=== PATIENT | male | born 1965 | race Caucasian/White ===

== ENCOUNTER 2020-02-03 16:41 | Emergency (ER) | payer MEDICAID ==
[~2020-02-03] VITALS: Ht 185.4 cm; Wt 99.8 kg
[2020-02-03 16:57] LABS: BASO # 0.1 10*3/uL (0.0-0.1); BASO % 0.4 % (0.0-1.0); EOS # 0.1 10*3/uL (0.0-0.4); EOS % 0.8 % (1.0-4.0); HEMATOCRIT 49.3 % (42.0-52.0); MEAN CELL VOLUME 93.2 fl (80.0-94.0); MEAN CORPUSCULAR HGB 32.3 pg (27.0-31.0); MEAN CORPUSCULAR HGB CONC 34.7 g/dl (33.0-37.0); MONO # 0.7 10*3/uL (0.1-1.0); MONO % 5.8 % (3.0-9.0); NEUT % 67.7 % (47.0-73.0); PLATELET COUNT AUTOMATED 341 10*3/uL (130-400); RED BLOOD COUNT 5.29 10*6/uL (4.50-5.90); RED CELL DISTRI WIDTH 11.9 % (0-14.5); WHITE BLOOD COUNT 11.8 10*3/uL (4.8-10.8)
[2020-02-03 17:06] LABS: ACT PARTIAL THROMBO TIME 27.7 SECONDS (20.0-32.1)
[2020-02-03 17:15] LABS: ALBUMIN 4.3 gm/dl (3.1-4.5); ALKALINE PHOSPHATASE 83 U/L (45-117); BUN 11 mg/dl (7-24); CHLORIDE 103 mmol/L (98-107); CREATININE 1.17 mg/dL (0.70-1.30); POTASSIUM 3.6 mmol/L (3.5-5.1); SGOT/AST 16 IU/L (3-35); SGPT/ALT 29 U/L (12-78); SODIUM 137 mmol/L (136-145)
[2020-02-03 17:17] LABS: TROPONIN I < 0.015 ng/ml (<0.045)
== END 2020-02-03 20:45 | disposition left against medical advice (07) ==
LOC: ED 16:41
PROVIDERS: Emergency Medicine
DX: R07.9 Chest pain, unspecified (principal); F32.9 Major depressive disorder, single episode, unspecified; F41.9 Anxiety disorder, unspecified; I10 Essential (primary) hypertension; F17.200 Nicotine dependence, unspecified, uncomplicated

== ENCOUNTER 2020-02-06 15:02 | Inpatient (IN) | payer MEDICAID ==
[~2020-02-06] VITALS: Ht 185.4 cm; Wt 82.2 kg
[2020-02-06 15:16] VITALS: BP 144/94
[2020-02-06 16:13] LABS: BASO # 0.1 10*3/uL (0.0-0.1); BASO % 0.5 % (0.0-1.0); EOS # 0.1 10*3/uL (0.0-0.4); EOS % 0.7 % (1.0-4.0); HEMATOCRIT 45.3 % (42.0-52.0); LYMPH # 2.5 10*3/uL (1.3-4.4); LYMPH % 24.5 % (27.0-41.0); MEAN CELL VOLUME 93.6 fl (80.0-94.0); MEAN CORPUSCULAR HGB CONC 34.2 g/dl (33.0-37.0); MEAN PLATELET VOLUME 9.1 fl (9.6-12.3); MONO # 0.6 10*3/uL (0.1-1.0); MONO % 6.2 % (3.0-9.0); NEUT % 67.8 % (47.0-73.0); PLATELET COUNT AUTOMATED 313 10*3/uL (130-400); RED BLOOD COUNT 4.84 10*6/uL (4.50-5.90); WHITE BLOOD COUNT 10.3 10*3/uL (4.8-10.8)
[2020-02-06 16:23] LABS: ACT PARTIAL THROMBO TIME 27.9 SECONDS (20.0-32.1)
[2020-02-06 16:30] LABS: ALBUMIN 3.9 gm/dl (3.1-4.5); ALKALINE PHOSPHATASE 53 U/L (45-117); BUN 14 mg/dl (7-24); CHLORIDE 106 mmol/L (98-107); POTASSIUM 3.7 mmol/L (3.5-5.1); SGOT/AST 25 IU/L (3-35); SGPT/ALT 28 U/L (12-78); SODIUM 136 mmol/L (136-145); TOTAL PROTEIN 7.4 gm/dL (6.4-8.2)
--- NOTE | 2020-02-06 16:32 | NUR ---
PT RESTING IN BED. CALL LIGHT WITHIN REACH. NO COMPLAINTS AT THIS TIME.
[2020-02-06 16:33] LABS: TROPONIN I < 0.015 ng/ml (<0.045)
[2020-02-06 17:06] VITALS: BP 136/85
[2020-02-06 17:25] VITALS: BP 135/85
[2020-02-06 17:47] VITALS: BP 143/88
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
[2020-02-06] MEDS ORDERED: ZIPRASIDONE HCL20 M1 PO (17:55)
[2020-02-06] MEDS ORDERED: CYMBALTA30 MG PO (17:55)
[2020-02-06] MEDS ORDERED: ATARAX,VISTARIL50 MG PO (17:57)
[2020-02-06] MEDS ORDERED: TRAZODONE50 MG PO (17:57)
--- NOTE | 2020-02-06 17:59 | NUR ---
MED REC UPDATED VIA LIST PROVIDED FROM HOME.
--- NOTE | 2020-02-06 18:41 | NUR ---
CONSULT CALLED TO ANSWERING SERVICE.
--- NOTE | 2020-02-06 18:44 | NUR ---
NOTIFIED THAT MED REC WAS UPDATED.
[2020-02-06 20:00] VITALS: BP 148/89
[2020-02-07] VITALS: BP 115/71; BP 123/62
[2020-02-07 05:45] LABS: ALKALINE PHOSPHATASE 82 U/L (45-117); BUN 16 mg/dl (7-24); CHLORIDE 108 mmol/L (98-107); CHOLESTEROL 197 mg/dL (<200); CREATININE 0.97 mg/dL (0.70-1.30); PHOSPHOROUS 3.4 mg/dL (2.5-4.9); POTASSIUM 3.7 mmol/L (3.5-5.1); SGOT/AST 20 IU/L (3-35); SGPT/ALT 30 U/L (12-78); SODIUM 138 mmol/L (136-145); TOTAL PROTEIN 7.6 gm/dL (6.4-8.2); TRIGLYCERIDES 70 mg/dl (<150); VLDL CHOLESTEROL 14 mg/dL (6-40)
[2020-02-07 05:46] LABS: HDL CHOLESTEROL 46 mg/dl (40-60); LDL CHOLESTEROL 137 mg/dL (9-159)
[2020-02-07 06:14] LABS: BASO % 0.5 % (0.0-1.0); EOS # 0.2 10*3/uL (0.0-0.4); EOS % 2.4 % (1.0-4.0); HEMATOCRIT 46.9 % (42.0-52.0); LYMPH # 2.3 10*3/uL (1.3-4.4); LYMPH % 27.9 % (27.0-41.0); MEAN CELL VOLUME 92.9 fl (80.0-94.0); MEAN CORPUSCULAR HGB 31.7 pg (27.0-31.0); MEAN CORPUSCULAR HGB CONC 34.1 g/dl (33.0-37.0); MEAN PLATELET VOLUME 9.6 fl (9.6-12.3); MONO # 0.5 10*3/uL (0.1-1.0); MONO % 6.5 % (3.0-9.0); NEUT # 5.2 10*3/uL (2.3-7.9); NEUT % 62.6 % (47.0-73.0); PLATELET COUNT AUTOMATED 325 10*3/uL (130-400); RED BLOOD COUNT 5.05 10*6/uL (4.50-5.90); RED CELL DISTRI WIDTH 12.1 % (0-14.5); WHITE BLOOD COUNT 8.3 10*3/uL (4.8-10.8)
[2020-02-07 08:00] VITALS: BP 110/76
--- NOTE | 2020-02-07 09:51 | NUR ---
Liquid Loader SPOKE WITH PATIENT VIA PHONE CALL. Patient states lives at [facility] with OTHER RESIDENTS. There are FEW steps in the home. Physician: BEE Pharmacy: [facility] [phone] Home health services: NONE Patient's level of ADLs: INDEPENDENT Patient has working utilities: YES DME: NONE Follow-up physician's appointment after d/c: WILL BE MADE BY HOSPITALIST COORDINATOR Does patient want to access PORTAL?: NO Discharge plan IS TO RETURN TO THE [facility]. PATIENT IS CURRENT WITH [facility]. PATIENT PSYCHIATRIST IS SIL POLK, PATIENTS HALL PORTER IS ANDRES SCRUGGS. PATIENT STATED THAT HE WILL NEED A CAB THROUGH HIS INSURANCE UPON DISCHARGE. PATIENTS PLAN IS TO RETURN TO [facility] UPON DISCHARGE. AT THIS TIME PATIENT HAS NO NEEDS. WILL CONTINUE TO FOLLOW. . JIMENEZ COULTER
--- NOTE | 2020-02-07 11:51 | NUR ---
PT ASSESSED FOR DA. PT RESTING COMFORTABLY. RESPS REGULAR AND UNLABORED AT 18. BBSs EQUAL AND CLEAR. SPO2 ON RA 94%. DA NOT INDICATED AT THIS TIME. INSTRUCTED PT TO CALL FOR TX FOR SOB.
[2020-02-07 12:00] VITALS: BP 119/86
[2020-02-07 16:00] VITALS: BP 113/74
--- NOTE | 2020-02-07 19:10 | NUR ---
PT SITTING IN BED AT THIS TIME. PT STATES THAT HE IS HUNGRY, OFFERED HIM A SANDWICH. NO OTHER COMPLAINTS, CALL LIGHT IN REACH
--- NOTE | 2020-02-07 19:50 | NUR ---
PT STATES THAT HE IS HAVING BAD ANXIETY AT THIS TIME. PT SITTING IN BED EATING AT THIS TIME. PT VOICES THAT HE IS CONCERNED HIS MEDICATIONS ARE NOT WORKING. PT VITALS AT THIS TIME ARE WNL. WILL NOTIFY THE DOCTOR.
[2020-02-07 20:00] VITALS: BP 122/87
--- NOTE | 2020-02-07 20:03 | NUR ---
DR. BLACKWELL NOTIFIED OF PT REQUEST FOR ATIVAN. NO NEW ORDERS AT THIS TIME.
--- NOTE | 2020-02-07 20:16 | NUR ---
VISTARIL GIVEN FOR COMPLAINTS OF ANXIETY. SEE MAR
--- NOTE | 2020-02-07 20:30 | NUR ---
PT LYING IN BED WATCHING TV AT THIS TIME. NO SIGNS OF DISTRESS. PT RELAXING.
--- NOTE | 2020-02-07 21:30 | NUR ---
PT RELAXING IN BED AT THIS TIME. PT STATES "I AM FEELING PRETTY GOOD RIGHT NOW, BUT I STILL NEED SOME ATIVAN." NO S/S OF DISTRESS NOTED. WILL NOTIFY DOCTOR
--- NOTE | 2020-02-07 22:20 | NUR ---
PT WATCHING TV AT THIS TIME. NO S/S OF DISTRESS NOTED.
--- NOTE | 2020-02-07 23:00 | NUR ---
PT LYING IN BED WATCHING TV. NO SIGNS OF DISTRESS.
[2020-02-08] VITALS: BP 122/87
--- NOTE | 2020-02-08 | NUR ---
PRN MEDICATIONS APPEAR TO BE EFFECTIVE. PT LYING IN BED WITH EYES CLOSED AT THIS TIME. RESTING COMFORTABLE. NO SIGNS OF DISTRESS. CALL LIGHT IN REACH
--- NOTE | 2020-02-08 01:00 | NUR ---
PT APPEARS TO BE SLEEPING AT THIS TIME. EYES CLOSED, RESPIRATIONS EASY AND UNLABORED. NO S/S OF DISTRESS NOTED. CALL LIGHT IN REACH
--- NOTE | 2020-02-08 02:00 | NUR ---
PT SLEEPING AT TIME. CALL LIGHT IN REACH
--- NOTE | 2020-02-08 03:00 | NUR ---
PT SLEEPING AT THIS TIME, RESPIRATIONS EASY AND UNLABORED. CALL LIGHT IN REACH
--- NOTE | 2020-02-08 04:00 | NUR ---
PT LYING IN BED SLEEPING AT THIS TIME.
[2020-02-08 08:00] VITALS: BP 116/74
--- NOTE | 2020-02-08 08:53 | NUR ---
MEDICATED WITH PRN PO VISTARIL FOR ANXIETY.
--- NOTE | 2020-02-08 09:40 | NUR ---
CARLTON HOLLY CALLED RE: PATIENT CONSULT. TRANSFERRED THE CALL TO HIS ROOM, PATIENT IS SPEAKING WITH HER.
[2020-02-08 12:00] VITALS: BP 108/65
[2020-02-08 16:00] VITALS: BP 107/71
--- NOTE | 2020-02-08 18:41 | NUR ---
MEDICATED WITH PRN PO VISTARIL FOR ANXIETY.
[2020-02-08 20:00] VITALS: BP 131/79
[2020-02-09] VITALS: BP 108/61
--- NOTE | 2020-02-09 | NUR ---
PT SLEEPING AT THIS TIME. NO S/S OF DISTRESS. CALL LIGHT IN REACH
--- NOTE | 2020-02-09 04:00 | NUR ---
PT APPEARS TO BE SLEEPING AT THIS TIME. CALL LIGHT IN REACH
[2020-02-09 06:15] LABS: BASO # 0.1 10*3/uL (0.0-0.1); BASO % 0.6 % (0.0-1.0); EOS # 0.4 10*3/uL (0.0-0.4); EOS % 5.1 % (1.0-4.0); HEMATOCRIT 46.1 % (42.0-52.0); LYMPH # 2.1 10*3/uL (1.3-4.4); LYMPH % 27.4 % (27.0-41.0); MEAN CELL VOLUME 96.8 fl (80.0-94.0); MEAN CORPUSCULAR HGB 31.7 pg (27.0-31.0); MEAN CORPUSCULAR HGB CONC 32.8 g/dl (33.0-37.0); MEAN PLATELET VOLUME 9.5 fl (9.6-12.3); MONO # 0.4 10*3/uL (0.1-1.0); MONO % 5.6 % (3.0-9.0); NEUT # 4.8 10*3/uL (2.3-7.9); NEUT % 61.2 % (47.0-73.0); PLATELET COUNT AUTOMATED 271 10*3/uL (130-400); RED BLOOD COUNT 4.76 10*6/uL (4.50-5.90); RED CELL DISTRI WIDTH 12.4 % (0-14.5); WHITE BLOOD COUNT 7.8 10*3/uL (4.8-10.8)
[2020-02-09 06:41] LABS: BUN 20 mg/dl (7-24); CHLORIDE 112 mmol/L (98-107); CREATININE 0.96 mg/dL (0.70-1.30); SODIUM 143 mmol/L (136-145)
[2020-02-09 07:53] LABS: VITAMIN D, 25-HYDROXY 34.8 ng/mL (30-100)
[2020-02-09 08:00] VITALS: BP 106/68; BP 145/63
--- NOTE | 2020-02-09 09:00 | NUR ---
patient will return to detention when medically stable, case management/socially responsible investment adviser will follow
--- NOTE | 2020-02-09 11:41 | NUR ---
INFORMED CONSENT SIGNED FOR STANDARD STRSS TEST WITH DR. BERNARD. RESTING EKG NSR, HR 73, BP 130/86. COMPLETED 1:54 OF A STANDARD SUSHIL PROTOCL COMPLETING 1:54 STAGE I 1.7 MPH/10% GRADE. TEST TERMINATED AT PT REQUEST. STATES HE IS WEAK AND LIGHTHEADED AND GOING TO PASS OUT. ASSITED OFF TREADMILL AND ONTO TABLE. PEAK HEART RATE OF 93 ACHIEVED WHICH IS 55% PREDICATED MAXIMUM AND A PEAK BP OF 124/80. DR. BERNARD PRESENT. STATES THAT WE ARE GOING TO HAVE TO DO A NUCLEAR STRESS TEST TO GET RESULTS NEEDED. NO ARRHYTHMIAS OR ST CHANGES PRESENT. PT FEELING NORMAL 4 MINUTES IN RECOVERY. HAS A LIMITED EXERCISE TOLERANCE. THIS IS A SUBOPTIMAL LIMITED STUDY. WILL RETURN THIS AFTERNOON FOR LEXISCAN STRESS TEST.
[2020-02-09 12:00] VITALS: BP 137/84
--- NOTE | 2020-02-09 14:32 | NUR ---
INFORMED CONSENT SIGNED FOR LEXISCAN STRESS TEST WITH DR. BERNARD. RESTING EKG NSR, HR 66, BP 130/84. PULSE OX 98% AND LUNGS CLEAR. COMPLETED ONE MINUTE OF LEXISCAN PROTOCOL RECEIVING LEXISCAN 0.4MG OVER 10 SECONDS. NO ARRHYTHMIAS OR ST CHANGES NOTED. PT C/O NAUSEA. LAST RECOVERY HR 98, BP 138/72. WAITING NUCLEAR SCANNING IN STABLE CONDITION.
--- NOTE | 2020-02-09 15:30 | NUR ---
RETURN FROM CARDIAC FUNCTION
[2020-02-09] MEDS ORDERED: CLONAZEPAM0.5 M2 PO ×2 (15:44→15:50)
[2020-02-09 16:00] VITALS: BP 148/84
--- NOTE | 2020-02-09 16:16 | NUR ---
PT WILL BE DISCAHRGED HOME TODAY. PT NEEDS TO HAVE A CAB CALLED THROUGH HIS INSURANCE COMPANY, RN CONTACTED CARE MANAGEMENT TO ATTEMPT TO FIGURE OUT INSURANCE NUMBER TO CALL FOR A CAB. ATTEMPTED TO CALL PATIENTS PHARMACY TO SEE IF NEW RX FOR KLONOPIN CAN BE FAXED, PT PHARMACY IS CLOSED AT THIS TIME. SPOKE TO SOMEONE AT [facility], THE PERSON I SPOKE TO STATED IF UNABLE TO FAX NEW RX TO PHARMACY TO SEND PAPER RX WITH PATIENT UPON DISCHARGE. PT AWARE DISCHARGE HOME TODAY, IV REMOVED, TELE REMOVED.
--- NOTE | 2020-02-09 16:47 | NUR ---
DISCHARGE INSTRUCTIONS PROVIDED TO PATIENT, PT HAS NO QUESTIONS AT THIS TIME. PT WILL BE TAKEN HOME BY [facility]. [facility] NOTIFIED PATIENT WILL RETURN.
--- NOTE | 2020-02-09 18:21 | NUR ---
PT READY FOR DISCHARGE, WAITING FOR CAB TO CALL AND NOTIFY THEY ARE ON THEIR WAY
--- NOTE | 2020-02-09 18:42 | NUR ---
CAB HERE TO REGION[facility] AGRONOMIST PATIENT, TAKEN TO ER VIA WHEELCHAIR FOR DISCAHRGE.
== END 2020-02-09 18:42 | DRG 203 ==
LOC: ED 15:02 → EDHOLD 16:56 → 4E 16:56
PROVIDERS: Emergency Medicine; Internal Medicine; Registered Nurse; Student in an Organized Health Care Education/Training Program; ADMIT Internal Medicine
PROC: 4A02XM4 Measurement of Cardiac Total Activity, External Approach (ICD-10-PCS; principal; 2020-02-09)
PROC: 3E073KZ Introduction of Other Diagnostic Substance into Coronary Artery, Percutaneous Approach (ICD-10-PCS; 2020-02-09)
DX: R07.89 Other chest pain (principal); E83.41 Hypermagnesemia; R06.02 Shortness of breath; I10 Essential (primary) hypertension; E78.5 Hyperlipidemia, unspecified; Z71.6 Tobacco abuse counseling; F41.9 Anxiety disorder, unspecified; F31.9 Bipolar disorder, unspecified; K21.9 Gastro-esophageal reflux disease without esophagitis; F17.210 Nicotine dependence, cigarettes, uncomplicated; R61 Generalized hyperhidrosis; Z82.49 Family history of ischemic heart disease and other diseases of the circulatory system; Z79.899 Other long term (current) drug therapy

== ENCOUNTER 2020-02-27 20:08 | Emergency (ER) | payer MEDICAID ==
[~2020-02-27] VITALS: Ht 185.4 cm; Wt 83.0 kg
[~2020-02-27 20:08] MED LIST: ATARAX,VISTARIL50 MG PO; CLONAZEPAM0.5 M2 PO; CYMBALTA30 MG PO; TRAZODONE50 MG PO; ZIPRASIDONE HCL20 M1 PO
[2020-02-27 20:32] LABS: BASO % 0.3 % (0.0-1.0); EOS # 0.2 10*3/uL (0.0-0.4); EOS % 1.4 % (1.0-4.0); LYMPH % 20.1 % (27.0-41.0); MEAN CELL VOLUME 91.5 fl (80.0-94.0); MEAN PLATELET VOLUME 9.1 fl (9.6-12.3); MONO # 0.9 10*3/uL (0.1-1.0); MONO % 5.7 % (3.0-9.0); NEUT # 10.9 10*3/uL (2.3-7.9); NEUT % 72.2 % (47.0-73.0); PLATELET COUNT AUTOMATED 279 10*3/uL (130-400); RED BLOOD COUNT 4.59 10*6/uL (4.50-5.90); RED CELL DISTRI WIDTH 12.5 % (0-14.5)
[2020-02-27 20:53] LABS: ALBUMIN 3.9 gm/dl (3.1-4.5); ALKALINE PHOSPHATASE 70 U/L (45-117); BUN 10 mg/dl (7-24); CHLORIDE 107 mmol/L (98-107); CREATININE 0.78 mg/dL (0.70-1.30); POTASSIUM 3.3 mmol/L (3.5-5.1); SGOT/AST 19 IU/L (3-35); SGPT/ALT 30 U/L (12-78); SODIUM 141 mmol/L (136-145)
[2020-02-27 20:55] LABS: TROPONIN I < 0.015 ng/ml (<0.045)
[2020-02-29] MEDS ORDERED: ATARAX,VISTARIL50 MG PO (10:18)
== END 2020-02-28 06:12 | disposition home or self-care (01) ==
LOC: ED 20:08
PROVIDERS: Nurse Practitioner Family
DX: F41.9 Anxiety disorder, unspecified (principal); E87.6 Hypokalemia; I10 Essential (primary) hypertension; F32.9 Major depressive disorder, single episode, unspecified; F17.200 Nicotine dependence, unspecified, uncomplicated; Z79.899 Other long term (current) drug therapy

== ENCOUNTER 2020-02-28 10:02 | Emergency (ER) | payer MEDICAID ==
[2020-02-29] MEDS ORDERED: ATARAX,VISTARIL50 MG PO (10:18)
== END 2020-02-28 11:18 | disposition home or self-care (01) ==
LOC: ED 10:02
DX: F41.9 Anxiety disorder, unspecified (principal); I10 Essential (primary) hypertension; F32.9 Major depressive disorder, single episode, unspecified; Z79.899 Other long term (current) drug therapy

== ENCOUNTER 2020-02-28 20:43 | Emergency (ER) | payer MEDICAID ==
[2020-02-29] MEDS ORDERED: ATARAX,VISTARIL50 MG PO (10:18)
== END 2020-02-29 10:25 | disposition home or self-care (01) ==
LOC: ED 20:43
DX: F41.9 Anxiety disorder, unspecified (principal); K21.9 Gastro-esophageal reflux disease without esophagitis; I10 Essential (primary) hypertension; F32.9 Major depressive disorder, single episode, unspecified; E78.5 Hyperlipidemia, unspecified; F17.200 Nicotine dependence, unspecified, uncomplicated; Z79.899 Other long term (current) drug therapy; Z88.8 Allergy status to other drugs, medicaments and biological substances

== ENCOUNTER 2020-03-01 20:33 | Emergency (ER) | payer MEDICAID ==
[~2020-03-01] VITALS: Ht 172.7 cm; Wt 95.3 kg
[2020-03-01 21:22] LABS: BASO % 0.2 % (0.0-1.0); EOS # 0.1 10*3/uL (0.0-0.4); EOS % 0.6 % (1.0-4.0); HEMATOCRIT 40.5 % (42.0-52.0); LYMPH # 1.9 10*3/uL (1.3-4.4); LYMPH % 13.4 % (27.0-41.0); MEAN CELL VOLUME 91.8 fl (80.0-94.0); MEAN CORPUSCULAR HGB CONC 34.8 g/dl (33.0-37.0); MONO % 7.2 % (3.0-9.0); NEUT # 10.9 10*3/uL (2.3-7.9); NEUT % 78.2 % (47.0-73.0); PLATELET COUNT AUTOMATED 273 10*3/uL (130-400); RED BLOOD COUNT 4.41 10*6/uL (4.50-5.90); RED CELL DISTRI WIDTH 12.3 % (0-14.5); WHITE BLOOD COUNT 13.9 10*3/uL (4.8-10.8)
[2020-03-01 21:37] LABS: ACETAMINOPHEN (TYLENOL) < 5.0 ug/ml (10-30); ALBUMIN 3.9 gm/dl (3.1-4.5); ALKALINE PHOSPHATASE 73 U/L (45-117); BUN 9 mg/dl (7-24); CHLORIDE 107 mmol/L (98-107); CREATININE 0.84 mg/dL (0.70-1.30); ETHYL ALCOHOL < 3.0 mg/dl (<3); POTASSIUM 3.7 mmol/L (3.5-5.1); SGOT/AST 26 IU/L (3-35); SGPT/ALT 28 U/L (12-78); SODIUM 136 mmol/L (136-145); TOTAL PROTEIN 7.2 gm/dL (6.4-8.2)
[2020-03-01 22:22] LABS: URINE AMPHETAMINES < 1000 (1000ng/ml); URINE BARBITURATES < 200 (200ng/ml); URINE BENZODIAZEPINES < 200 (200ng/ml); URINE CANNABINOIDS (THC) < 50 (50ng/ml); URINE COCAINE < 300 (300ng/ml); URINE METHADONE < 300 (300ng/ml); URINE OPIATES < 300 (300ng/ml)
[2020-03-01 22:31] LABS: URINE PHENCYCLIDINE < 25 (25ng/ml)
[2020-03-01 22:33] LABS: BACTERIA TRACE; BILIRUBIN NEGATIVE (NEGATIVE); BLOOD NEGATIVE (NEGATIVE); CLARITY SL CLOUDY (CLEAR); COLOR YELLOW (YELLOW); GLUCOSE NEGATIVE (NEGATIVE); KETONE NEGATIVE (NEGATIVE); LEUKO ESTERASE TRACE (NEGATIVE); NITRITE NEGATIVE (NEGATIVE); PH 6.5 (5.0-9.0); RBC 0-2 rbc/hpf (0-2); SPECIFIC GRAVITY 1.005 (1.005-1.030); UROBILINOGEN 0.2 E.U./dl (0.2-1.0)
== END 2020-03-02 11:26 | disposition home or self-care (01) ==
LOC: ED 20:33
PROVIDERS: Emergency Medicine
DX: F41.9 Anxiety disorder, unspecified (principal); F31.9 Bipolar disorder, unspecified; K21.9 Gastro-esophageal reflux disease without esophagitis; I10 Essential (primary) hypertension; E78.5 Hyperlipidemia, unspecified; F17.200 Nicotine dependence, unspecified, uncomplicated; Z79.899 Other long term (current) drug therapy

== ENCOUNTER 2020-03-05 05:02 | Emergency (ER) | payer MEDICAID ==
[~2020-03-05] VITALS: Wt 78.5 kg
[2020-03-05 05:32] LABS: BASO % 0.4 % (0.0-1.0); EOS # 0.2 10*3/uL (0.0-0.4); EOS % 1.8 % (1.0-4.0); HEMATOCRIT 44.7 % (42.0-52.0); LYMPH # 2.3 10*3/uL (1.3-4.4); LYMPH % 27.2 % (27.0-41.0); MEAN CELL VOLUME 92.7 fl (80.0-94.0); MEAN CORPUSCULAR HGB 31.3 pg (27.0-31.0); MEAN CORPUSCULAR HGB CONC 33.8 g/dl (33.0-37.0); MEAN PLATELET VOLUME 9.1 fl (9.6-12.3); MONO # 0.6 10*3/uL (0.1-1.0); MONO % 6.6 % (3.0-9.0); NEUT # 5.3 10*3/uL (2.3-7.9); NEUT % 63.8 % (47.0-73.0); PLATELET COUNT AUTOMATED 337 10*3/uL (130-400); RED BLOOD COUNT 4.82 10*6/uL (4.50-5.90); RED CELL DISTRI WIDTH 12.2 % (0-14.5); WHITE BLOOD COUNT 8.3 10*3/uL (4.8-10.8)
[2020-03-05 05:37] LABS: ALBUMIN 3.7 gm/dl (3.1-4.5); ALKALINE PHOSPHATASE 75 U/L (45-117); BUN 15 mg/dl (7-24); CHLORIDE 109 mmol/L (98-107); CREATININE 0.93 mg/dL (0.70-1.30); POTASSIUM 3.9 mmol/L (3.5-5.1); SGOT/AST 24 IU/L (3-35); SGPT/ALT 33 U/L (12-78); SODIUM 141 mmol/L (136-145); TOTAL PROTEIN 7.3 gm/dL (6.4-8.2)
[2020-03-05 05:38] LABS: ACETAMINOPHEN (TYLENOL) < 5.0 ug/ml (10-30); ETHYL ALCOHOL < 3.0 mg/dl (<3)
[2020-03-05 06:46] LABS: URINE AMPHETAMINES < 1000 (1000ng/ml); URINE BARBITURATES < 200 (200ng/ml); URINE BENZODIAZEPINES < 200 (200ng/ml); URINE CANNABINOIDS (THC) < 50 (50ng/ml); URINE COCAINE < 300 (300ng/ml); URINE METHADONE < 300 (300ng/ml); URINE OPIATES < 300 (300ng/ml)
[2020-03-05 06:48] LABS: BILIRUBIN NEGATIVE (NEGATIVE); CLARITY SL CLOUDY (CLEAR); COLOR YELLOW (YELLOW); GLUCOSE NEGATIVE (NEGATIVE); KETONE NEGATIVE (NEGATIVE)
[2020-03-05 06:49] LABS: BACTERIA TRACE; BLOOD NEGATIVE (NEGATIVE); CALCIUM OXALATE CRYSTALS 2+; EPITHELIAL CELLS 0-2; LEUKO ESTERASE NEGATIVE (NEGATIVE); MUCOUS 2+; NITRITE NEGATIVE (NEGATIVE); UROBILINOGEN 0.2 E.U./dl (0.2-1.0); WBC 0-2 wbc/hpf (0-5)
[2020-03-05 06:50] LABS: URINE PHENCYCLIDINE < 25 (25ng/ml)
== END 2020-03-05 10:18 | disposition home or self-care (01) ==
LOC: ED 05:02
PROVIDERS: Emergency Medicine
DX: F41.9 Anxiety disorder, unspecified (principal); F31.9 Bipolar disorder, unspecified; K21.9 Gastro-esophageal reflux disease without esophagitis; I10 Essential (primary) hypertension; E78.5 Hyperlipidemia, unspecified; F17.200 Nicotine dependence, unspecified, uncomplicated; Z79.899 Other long term (current) drug therapy

== ENCOUNTER 2020-03-11 17:58 | Emergency (ER) | payer MEDICAID ==
[~2020-03-11] VITALS: Ht 177.8 cm; Wt 78.0 kg
== END 2020-03-11 19:34 | disposition home or self-care (01) ==
LOC: ED 17:58
DX: F41.9 Anxiety disorder, unspecified (principal); I10 Essential (primary) hypertension; F31.9 Bipolar disorder, unspecified; K21.9 Gastro-esophageal reflux disease without esophagitis; E78.5 Hyperlipidemia, unspecified; Z87.891 Personal history of nicotine dependence

== ENCOUNTER 2020-03-11 23:57 | Inpatient (IN) | payer MEDICAID ==
[~2020-03-11] VITALS: Ht 185.4 cm; Wt 76.7 kg
[2020-03-12 00:05] VITALS: BP 140/78
[2020-03-12 00:50] LABS: BASO % 0.3 % (0.0-1.0); EOS # 0.1 10*3/uL (0.0-0.4); EOS % 0.9 % (1.0-4.0); HEMATOCRIT 45.2 % (42.0-52.0); LYMPH # 2.4 10*3/uL (1.3-4.4); LYMPH % 21.6 % (27.0-41.0); MEAN CELL VOLUME 91.5 fl (80.0-94.0); MEAN CORPUSCULAR HGB 31.4 pg (27.0-31.0); MEAN CORPUSCULAR HGB CONC 34.3 g/dl (33.0-37.0); MEAN PLATELET VOLUME 8.9 fl (9.6-12.3); MONO # 0.8 10*3/uL (0.1-1.0); MONO % 6.8 % (3.0-9.0); NEUT # 7.7 10*3/uL (2.3-7.9); NEUT % 70.2 % (47.0-73.0); PLATELET COUNT AUTOMATED 370 10*3/uL (130-400); RED BLOOD COUNT 4.94 10*6/uL (4.50-5.90); RED CELL DISTRI WIDTH 12.2 % (0-14.5)
[2020-03-12 01:08] LABS: ALBUMIN 4.2 gm/dl (3.1-4.5); ALKALINE PHOSPHATASE 82 U/L (45-117); BUN 23 mg/dl (7-24); CHLORIDE 108 mmol/L (98-107); CREATININE 1.15 mg/dL (0.70-1.30); POTASSIUM 3.6 mmol/L (3.5-5.1); SGOT/AST 15 IU/L (3-35); SGPT/ALT 28 U/L (12-78); SODIUM 140 mmol/L (136-145); TOTAL PROTEIN 7.9 gm/dL (6.4-8.2)
[2020-03-12 01:15] LABS: ACETAMINOPHEN (TYLENOL) < 5.0 ug/ml (10-30); ETHYL ALCOHOL < 3.0 mg/dl (<3)
[2020-03-12 09:24] VITALS: BP 136/80
[2020-03-12 20:14] VITALS: BP 118/71
[2020-03-12 20:21] LABS: BILIRUBIN NEGATIVE (NEGATIVE); BLOOD TRACE-LYSED (NEGATIVE); CLARITY CLEAR (CLEAR); COLOR YELLOW (YELLOW); GLUCOSE NEGATIVE (NEGATIVE); KETONE NEGATIVE (NEGATIVE); LEUKO ESTERASE NEGATIVE (NEGATIVE); NITRITE NEGATIVE (NEGATIVE); URINE AMPHETAMINES < 1000 (1000ng/ml); URINE BARBITURATES < 200 (200ng/ml); URINE BENZODIAZEPINES < 200 (200ng/ml); URINE CANNABINOIDS (THC) < 50 (50ng/ml); URINE COCAINE < 300 (300ng/ml); URINE METHADONE < 300 (300ng/ml); URINE OPIATES < 300 (300ng/ml); UROBILINOGEN 0.2 E.U./dl (0.2-1.0)
[2020-03-12 20:24] LABS: BACTERIA 1+; MUCOUS 1+
[2020-03-12 20:25] LABS: URINE PHENCYCLIDINE < 25 (25ng/ml)
[2020-03-13 08:30] VITALS: BP 117/71
[2020-03-13 09:37] VITALS: BP 126/71
[2020-03-13 10:18] VITALS: BP 124/70
[2020-03-13 10:30] VITALS: BP 124/70
[2020-03-13 10:51] VITALS: BP 124/70
[2020-03-13 20:02] VITALS: BP 132/80
[2020-03-14 06:03] LABS: BASO % 0.5 % (0.0-1.0); EOS # 0.4 10*3/uL (0.0-0.4); HEMATOCRIT 45.6 % (42.0-52.0); LYMPH # 1.8 10*3/uL (1.3-4.4); LYMPH % 20.4 % (27.0-41.0); MEAN CELL VOLUME 94.6 fl (80.0-94.0); MEAN CORPUSCULAR HGB 32.2 pg (27.0-31.0); MEAN PLATELET VOLUME 9.3 fl (9.6-12.3); MONO # 0.6 10*3/uL (0.1-1.0); MONO % 6.8 % (3.0-9.0); PLATELET COUNT AUTOMATED 289 10*3/uL (130-400); RED BLOOD COUNT 4.82 10*6/uL (4.50-5.90); RED CELL DISTRI WIDTH 12.4 % (0-14.5); WHITE BLOOD COUNT 8.9 10*3/uL (4.8-10.8)
[2020-03-14 06:18] LABS: ALBUMIN 3.7 gm/dl (3.1-4.5); ALKALINE PHOSPHATASE 78 U/L (45-117); BUN 13 mg/dl (7-24); CHLORIDE 108 mmol/L (98-107); CHOLESTEROL 177 mg/dL (<200); CREATININE 0.96 mg/dL (0.70-1.30); HDL CHOLESTEROL 43 mg/dl (40-60); LDL CHOLESTEROL 116 mg/dL (9-159); SGOT/AST 29 IU/L (3-35); SGPT/ALT 35 U/L (12-78); SODIUM 140 mmol/L (136-145); TOTAL PROTEIN 7.4 gm/dL (6.4-8.2); TRIGLYCERIDES 91 mg/dl (<150); VLDL CHOLESTEROL 18 mg/dL (6-40)
[2020-03-14 07:41] VITALS: BP 112/55
[2020-03-14 20:04] VITALS: BP 121/76
[2020-03-15 08:00] VITALS: BP 110/58
[2020-03-16 08:00] VITALS: BP 134/87
[2020-03-16 20:00] VITALS: BP 139/81
[2020-03-17 07:37] VITALS: BP 115/72
[2020-03-17 20:00] VITALS: BP 120/73
[2020-03-18 07:48] VITALS: BP 111/61
[2020-03-18 20:00] VITALS: BP 112/62
[2020-03-19 07:31] VITALS: BP 134/84
[2020-03-19 19:52] VITALS: BP 128/82
[2020-03-20 07:36] VITALS: BP 107/61
[2020-03-20 20:00] VITALS: BP 113/64
[2020-03-21 07:43] VITALS: BP 108/63
[2020-03-21 19:49] VITALS: BP 111/55
[2020-03-22 07:33] VITALS: BP 117/63
[2020-03-22 19:28] VITALS: BP 106/64
[2020-03-23 07:46] VITALS: BP 110/63
[2020-03-23 19:55] VITALS: BP 118/76
[2020-03-24 07:50] VITALS: BP 105/68
[2020-03-24 20:00] VITALS: BP 112/68
[2020-03-25 07:59] VITALS: BP 112/69
[2020-03-25 20:00] VITALS: BP 118/68
[2020-03-26 08:00] VITALS: BP 118/68
[2020-03-26 20:00] VITALS: BP 114/65
[2020-03-27 07:53] VITALS: BP 112/64
[2020-03-27 20:00] VITALS: BP 102/55
[2020-03-28 08:00] VITALS: BP 117/82
[2020-03-28 20:00] VITALS: BP 120/78
[2020-03-29 07:31] VITALS: BP 116/67
[2020-03-29] MEDS ORDERED: DULOXETINE HCL60 MG PO (10:50)
[2020-03-29] MEDS ORDERED: INVEGA SUSTENN156 MG IM (10:50)
[2020-03-29] MEDS ORDERED: QUETIAPINE FUM100 M3 PO ×2 (11:13)
[2020-03-29] MEDS ORDERED: BENZTROPINE ME0.5 MG PO (11:13)
[2020-03-29 19:10] VITALS: BP 113/82
[2020-03-30 07:44] VITALS: BP 116/72
[2020-03-30] MEDS ORDERED: Vitamin D (50,000 UN PO (09:20)
== END 2020-03-30 10:47 | DRG 750 ==
LOC: ED 23:57 → 3N 03-13 09:05
PROVIDERS: Emergency Medicine; ADMIT Psychiatry & Neurology Psychiatry
DX: F25.0 Schizoaffective disorder, bipolar type (principal); F63.81 Intermittent explosive disorder; F32.9 Major depressive disorder, single episode, unspecified; F41.9 Anxiety disorder, unspecified; F17.210 Nicotine dependence, cigarettes, uncomplicated; E55.9 Vitamin D deficiency, unspecified; K21.9 Gastro-esophageal reflux disease without esophagitis; I10 Essential (primary) hypertension; E78.5 Hyperlipidemia, unspecified; Z82.49 Family history of ischemic heart disease and other diseases of the circulatory system; Z79.899 Other long term (current) drug therapy; Z20.828 Contact with and (suspected) exposure to other viral communicable diseases

== ENCOUNTER 2021-02-07 15:52 | Inpatient (IN) | payer MEDICAID ==
[~2021-02-07] VITALS: Ht 185.4 cm; Wt 82.7 kg
[~2021-02-07 15:52] MED LIST changes: +BENZTROPINE ME0.5 MG PO; +DULOXETINE HCL60 MG PO; +INVEGA SUSTENN156 MG IM; +QUETIAPINE FUM100 M3 PO; +Vitamin D (50,000 UN PO
[2021-02-07] MEDS ORDERED: MULTI-BETIC TA1 EACH PO ×2 (17:14→18:32)
[2021-02-07] MEDS ORDERED: MINIPRESS1 MG PO (17:18)
[2021-02-07] MEDS ORDERED: VIAGRA100 MG PO ×2 (17:19→18:34)
[2021-02-07] MEDS ORDERED: TAMOXIFEN CITRA20 MG PO ×2 (17:20→18:35)
[2021-02-07] MEDS ORDERED: ADCIRCA20 MG PO ×2 (17:22→18:38)
[2021-02-07] MEDS ORDERED: CYMBALTA60 MG PO ×2 (17:28→18:24)
[2021-02-07] MEDS ORDERED: SEROQUEL100 MG PO (18:27)
[2021-02-07] MEDS ORDERED: PRAZOSIN HYDROCH1 MG PO (18:28)
[2021-02-07] MEDS ORDERED: IBU-200200 MG PO (18:31)
[2021-02-07] MEDS ORDERED: SINUS NAS (18:37)
[2021-02-07 20:00] VITALS: BP 150/87
[2021-02-08 06:17] LABS: BASO % 0.3 % (0.0-1.0); EOS # 0.3 10*3/uL (0.0-0.4); EOS % 3.7 % (1.0-4.0); HEMATOCRIT 44.3 % (42.0-52.0); LYMPH # 1.6 10*3/uL (1.3-4.4); LYMPH % 22.8 % (27.0-41.0); MEAN CELL VOLUME 93.7 fl (80.0-94.0); MEAN CORPUSCULAR HGB 30.9 pg (27.0-31.0); MEAN PLATELET VOLUME 9.8 fl (9.6-12.3); MONO # 0.5 10*3/uL (0.1-1.0); MONO % 7.3 % (3.0-9.0); NEUT # 4.7 10*3/uL (2.3-7.9); NEUT % 65.8 % (47.0-73.0); PLATELET COUNT AUTOMATED 291 10*3/uL (130-400); RED BLOOD COUNT 4.73 10*6/uL (4.50-5.90); RED CELL DISTRI WIDTH 12.4 % (0-14.5); WHITE BLOOD COUNT 7.1 10*3/uL (4.8-10.8)
[2021-02-08 06:42] LABS: ALBUMIN 3.7 gm/dl (3.1-4.5); BUN 14 mg/dl (7-24); CHLORIDE 111 mmol/L (98-107); CREATININE 0.95 mg/dL (0.70-1.30); POTASSIUM 3.8 mmol/L (3.5-5.1); SGOT/AST 14 IU/L (3-35); SGPT/ALT 21 U/L (12-78); SODIUM 141 mmol/L (136-145)
[2021-02-08 06:53] LABS: ALKALINE PHOSPHATASE 97 U/L (45-117); CHOLESTEROL 175 mg/dL (<200); LDL CHOLESTEROL 118 mg/dL (9-159); TOTAL PROTEIN 7.1 gm/dL (6.4-8.2); TRIGLYCERIDES 73 mg/dl (<150)
[2021-02-08 07:46] LABS: VITAMIN D, 25-HYDROXY 47.2 ng/mL (30-100)
[2021-02-08 08:04] VITALS: BP 132/67
[2021-02-08 10:41] LABS: BILIRUBIN 1+ (Negative); BLOOD Negative (Negative); CLARITY Clear (Clear); COLOR Dark Yellow (Yellow); GLUCOSE Negative (Negative); KETONE Trace (Negative); LEUKO ESTERASE Trace (Negative); NITRITE Negative (Negative); PH 5.5 (4.5-8.0); SPECIFIC GRAVITY 1.025 (1.001-1.030)
[2021-02-08 10:50] LABS: BACTERIA TRACE; EPITHELIAL CELLS 0-2; FINE GRANULAR CAST 0-2; MUCOUS 1+; RBC 0-2 rbc/hpf (0-2)
[2021-02-08 20:00] VITALS: BP 124/88
[2021-02-09 07:35] VITALS: BP 105/66
[2021-02-09 20:00] VITALS: BP 121/75
[2021-02-10 07:14] VITALS: BP 128/75
[2021-02-10 20:00] VITALS: BP 113/63
[2021-02-11 07:28] VITALS: BP 121/58
[2021-02-11] MEDS ORDERED: INVEGA SUSTENN156 MG IM (13:17)
[2021-02-11 19:04] VITALS: BP 126/76
[2021-02-12 07:42] VITALS: BP 131/70
[2021-02-12 20:00] VITALS: BP 106/66
[2021-02-13 07:39] VITALS: BP 125/62
[2021-02-13 20:00] VITALS: BP 123/57
[2021-02-14 07:34] VITALS: BP 131/81
[2021-02-14] MEDS ORDERED: MINIPRESS1 M1 PO (09:59)
[2021-02-14] MEDS ORDERED: TRIHEXYPHENIDYL2 M3 PO (09:59)
[2021-02-14] MEDS ORDERED: MIRTAZAPINE15 M2 PO (09:59)
== END 2021-02-14 16:12 | disposition home or self-care (01) | DRG 750 ==
LOC: 3N 15:52
PROVIDERS: ADMIT Psychiatry & Neurology Psychiatry; ATTEND Psychiatry & Neurology Psychiatry
PROC: 0HBRXZZ Excision of Toe Nail, External Approach (ICD-10-PCS; principal; 2021-02-11)
PROC: 0HBRXZZ Excision of Toe Nail, External Approach (ICD-10-PCS; 2021-02-11)
PROC: 0HBRXZZ Excision of Toe Nail, External Approach (ICD-10-PCS; 2021-02-11)
PROC: 0HBRXZZ Excision of Toe Nail, External Approach (ICD-10-PCS; 2021-02-11)
PROC: 0HBRXZZ Excision of Toe Nail, External Approach (ICD-10-PCS; 2021-02-11)
PROC: 0HBRXZZ Excision of Toe Nail, External Approach (ICD-10-PCS; 2021-02-11)
PROC: 0HBRXZZ Excision of Toe Nail, External Approach (ICD-10-PCS; 2021-02-11)
PROC: 0HBRXZZ Excision of Toe Nail, External Approach (ICD-10-PCS; 2021-02-11)
PROC: 0HBRXZZ Excision of Toe Nail, External Approach (ICD-10-PCS; 2021-02-11)
PROC: 0HBRXZZ Excision of Toe Nail, External Approach (ICD-10-PCS; 2021-02-11)
DX: F25.9 Schizoaffective disorder, unspecified (principal); F63.81 Intermittent explosive disorder; F32.9 Major depressive disorder, single episode, unspecified; I10 Essential (primary) hypertension; R45.851 Suicidal ideations; F43.10 Post-traumatic stress disorder, unspecified; E78.5 Hyperlipidemia, unspecified; E55.9 Vitamin D deficiency, unspecified; F41.9 Anxiety disorder, unspecified; Z20.822 Contact with and (suspected) exposure to COVID-19; G25.71 Drug induced akathisia; B35.1 Tinea unguium; K21.9 Gastro-esophageal reflux disease without esophagitis; F17.210 Nicotine dependence, cigarettes, uncomplicated; Z71.6 Tobacco abuse counseling; Z82.49 Family history of ischemic heart disease and other diseases of the circulatory system; Z79.899 Other long term (current) drug therapy

== ENCOUNTER 2023-01-01 08:55 | Emergency (ER) | payer OTHER ==
[~2023-01-01 08:55] MED LIST changes: +ADCIRCA20 MG PO; +CYMBALTA60 MG PO; +IBU-200200 MG PO; +MINIPRESS1 M1 PO; +MINIPRESS1 MG PO; +MIRTAZAPINE15 M2 PO; +MULTI-BETIC TA1 EACH PO; +PRAZOSIN HYDROCH1 MG PO; +SEROQUEL100 MG PO; +SINUS NAS; +TAMOXIFEN CITRA20 MG PO; +TRIHEXYPHENIDYL2 M3 PO; +VIAGRA100 MG PO
[2023-01-01 09:20] LABS: BASO % 0.3 % (0.0-1.0); EOS # 0.1 10*3/uL (0.0-0.4); EOS % 1.1 % (1.0-4.0); HEMATOCRIT 45.6 % (42.0-52.0); LYMPH # 1.1 10*3/uL (1.3-4.4); LYMPH % 18.2 % (27.0-41.0); MEAN CELL VOLUME 96.6 fl (80.0-94.0); MEAN CORPUSCULAR HGB 33.1 pg (27.0-31.0); MEAN CORPUSCULAR HGB CONC 34.2 g/dl (33.0-37.0); MEAN PLATELET VOLUME 9.3 fl (9.6-12.3); MONO # 0.3 10*3/uL (0.1-1.0); MONO % 4.6 % (3.0-9.0); NEUT # 4.7 10*3/uL (2.3-7.9); NEUT % 75.5 % (47.0-73.0); PLATELET COUNT AUTOMATED 276 10*3/uL (130-400); RED BLOOD COUNT 4.72 10*6/uL (4.50-5.90); RED CELL DISTRI WIDTH 12.5 % (0-14.5); WHITE BLOOD COUNT 6.3 10*3/uL (4.8-10.8)
[2023-01-01 09:38] LABS: BILIRUBIN Negative (Negative); BLOOD Negative (Negative); CLARITY Clear (Clear); COLOR Yellow (Yellow); GLUCOSE Negative (Negative); KETONE Negative (Negative); LEUKO ESTERASE Negative (Negative); NITRITE Negative (Negative); PH 6.5 (4.5-8.0)
[2023-01-01 09:38] LABS: ALKALINE PHOSPHATASE 73 U/L (46-116); BUN 9 mg/dl (9-23); CHLORIDE 109 mmol/L (98-107); FREE T4 1.01 ng/dl (0.89-1.76); SGPT/ALT 17 U/L (10-49); THYROID STIM HORMONE (HS) 1.783 uIU/ml (0.550-4.780)
[2023-01-01 09:39] LABS: ETHYL ALCOHOL < 3.0 mg/dl (<3)
[2023-01-01 09:46] LABS: URINE AMPHETAMINES Negative (1000ng/ml); URINE BARBITURATES Negative (200ng/ml); URINE BENZODIAZEPINES Negative (200ng/ml); URINE CANNABINOIDS (THC) Negative (50ng/ml); URINE COCAINE Negative (300ng/ml); URINE METHADONE Negative (300ng/ml); URINE OPIATES Negative (300ng/ml); URINE PHENCYCLIDINE Negative (25ng/ml)
[2023-01-01 09:48] LABS: MUCOUS TRACE; WBC 0-2 wbc/hpf (0-5)
[2023-01-01] MEDS ORDERED: DULOXETINE HCL30 MG PO (11:58)
[2023-01-01] MEDS ORDERED: MINIPRESS1 M1 PO (11:59)
== END 2023-01-01 13:53 ==
LOC: ED 08:55
PROVIDERS: Internal Medicine
DX: F32.A Depression, unspecified (principal); R45.851 Suicidal ideations; I10 Essential (primary) hypertension; Z90.89 Acquired absence of other organs; F17.200 Nicotine dependence, unspecified, uncomplicated; Z20.822 Contact with and (suspected) exposure to COVID-19

== ENCOUNTER 2023-03-25 15:09 | Emergency (ER) | payer OTHER ==
[~2023-03-25] VITALS: Ht 185.4 cm; Wt 90.7 kg
[~2023-03-25 15:09] MED LIST changes: +DULOXETINE HCL30 MG PO
[2023-03-25] MEDS ORDERED: CYMBALTA60 MG PO (16:06)
[2023-03-25] MEDS ORDERED: REMERON30 M1 PO (16:06)
[2023-03-25] MEDS ORDERED: ZITHROMAX250 MG PO (16:22)
[2023-03-25] MEDS ORDERED: PREDNISONE50 MG PO (16:22)
== END 2023-03-25 17:20 | disposition home or self-care (01) ==
LOC: ED 15:09
DX: J20.9 Acute bronchitis, unspecified (principal); I10 Essential (primary) hypertension; F31.9 Bipolar disorder, unspecified; Z90.89 Acquired absence of other organs; F17.200 Nicotine dependence, unspecified, uncomplicated; Z20.822 Contact with and (suspected) exposure to COVID-19

== ENCOUNTER 2023-04-10 16:56 | Emergency (ER) | payer OTHER ==
[~2023-04-10] VITALS: Ht 185.4 cm; Wt 90.7 kg
[~2023-04-10 16:56] MED LIST changes: +PREDNISONE50 MG PO; +REMERON30 M1 PO; +ZITHROMAX250 MG PO
[2023-04-10] MEDS ORDERED: VRAYLAR3 MG PO (17:09)
== END 2023-04-10 17:51 | disposition home or self-care (01) ==
LOC: ED 16:56
DX: F41.0 Panic disorder [episodic paroxysmal anxiety] (principal); I10 Essential (primary) hypertension; F31.9 Bipolar disorder, unspecified; F41.9 Anxiety disorder, unspecified; Z90.89 Acquired absence of other organs; F17.200 Nicotine dependence, unspecified, uncomplicated

== ENCOUNTER 2023-04-15 07:56 | Emergency (ER) | payer OTHER ==
[~2023-04-15] VITALS: Ht 175.2 cm; Wt 86.2 kg
[~2023-04-15 07:56] MED LIST changes: +VRAYLAR3 MG PO
[2023-04-15 09:18] LABS: BASO % 0.5 % (0.0-1.0); EOS # 0.3 10*3/uL (0.0-0.4); EOS % 5.9 % (1.0-4.0); HEMATOCRIT 42.4 % (42.0-52.0); LYMPH # 1.5 10*3/uL (1.3-4.4); LYMPH % 26.8 % (27.0-41.0); MEAN CELL VOLUME 95.5 fl (80.0-94.0); MEAN CORPUSCULAR HGB CONC 33.5 g/dl (33.0-37.0); MONO # 0.4 10*3/uL (0.1-1.0); MONO % 7.3 % (3.0-9.0); NEUT # 3.3 10*3/uL (2.3-7.9); NEUT % 59.3 % (47.0-73.0); PLATELET COUNT AUTOMATED 251 10*3/uL (130-400); RED BLOOD COUNT 4.44 10*6/uL (4.50-5.90); RED CELL DISTRI WIDTH 12.2 % (0-14.5); WHITE BLOOD COUNT 5.6 10*3/uL (4.8-10.8)
[2023-04-15 09:44] LABS: ALKALINE PHOSPHATASE 96 U/L (46-116); BUN 10 mg/dl (9-23); CHLORIDE 109 mmol/L (98-107); GAMMA GLUTAMYL TRANSPEPTIDASE 21 U/L (0-73); LIPASE 37 U/L (12-53); POTASSIUM 4.1 mmol/L (3.4-5.1); SGPT/ALT 17 U/L (10-49); TOTAL PROTEIN 6.5 gm/dL (6.0-8.0)
== END 2023-04-15 10:22 | disposition home or self-care (01) ==
LOC: ED 07:56
PROVIDERS: Internal Medicine
DX: R10.11 Right upper quadrant pain (principal); Z90.89 Acquired absence of other organs; F17.200 Nicotine dependence, unspecified, uncomplicated; I10 Essential (primary) hypertension; F31.9 Bipolar disorder, unspecified; F41.9 Anxiety disorder, unspecified

== ENCOUNTER 2024-02-18 14:06 | Emergency (ER) | payer OTHER ==
[~2024-02-18] VITALS: Ht 1859 cm; Wt 84.8 kg
[2024-02-18] MEDS ORDERED: BENZONATATE100 M1 PO (15:43)
== END 2024-02-18 15:48 | disposition home or self-care (01) ==
LOC: ED 14:06
DX: J06.9 Acute upper respiratory infection, unspecified (principal); Z20.822 Contact with and (suspected) exposure to COVID-19; I10 Essential (primary) hypertension; F31.9 Bipolar disorder, unspecified; F41.9 Anxiety disorder, unspecified; F17.200 Nicotine dependence, unspecified, uncomplicated; Z90.89 Acquired absence of other organs

== ENCOUNTER 2024-02-21 09:06 | Emergency (ER) | payer OTHER ==
[~2024-02-21] VITALS: Ht 177.8 cm; Wt 86.2 kg
[~2024-02-21 09:06] MED LIST changes: +BENZONATATE100 M1 PO
[2024-02-21] MEDS ORDERED: AVPAK AZITHROM250 M1 PO (09:25)
[2024-02-21] MEDS ORDERED: PREDNISONE20 M1 PO (09:25)
[2024-02-21] MEDS ORDERED: AFRIN 15 ML15 M1 NAS (09:25)
== END 2024-02-21 09:25 | disposition home or self-care (01) ==
LOC: ED 09:06
DX: J32.9 Chronic sinusitis, unspecified (principal); F31.9 Bipolar disorder, unspecified; F41.9 Anxiety disorder, unspecified; I10 Essential (primary) hypertension; E78.5 Hyperlipidemia, unspecified; Z90.89 Acquired absence of other organs; F17.200 Nicotine dependence, unspecified, uncomplicated

== ENCOUNTER 2024-03-04 12:46 | Emergency (ER) | payer OTHER ==
[~2024-03-04] VITALS: Ht 177.8 cm; Wt 74.8 kg
[~2024-03-04 12:46] MED LIST changes: +AFRIN 15 ML15 M1 NAS; +AVPAK AZITHROM250 M1 PO; +PREDNISONE20 M1 PO
[2024-03-04] MEDS ORDERED: SODIUM CHLORIDE 0.9% 1,000 ML IV ONE (13:05)
[2024-03-04 13:28] LABS: BASO % 0.3 % (0.0-1.0); EOS # 0.1 10*3/uL (0.0-0.4); EOS % 0.5 % (1.0-4.0); LYMPH # 1.8 10*3/uL (1.3-4.4); LYMPH % 13.3 % (27.0-41.0); MEAN CELL VOLUME 93.1 fl (80.0-94.0); MEAN CORPUSCULAR HGB 31.4 pg (27.0-31.0); MEAN CORPUSCULAR HGB CONC 33.7 g/dl (33.0-37.0); MEAN PLATELET VOLUME 9.1 fl (9.6-12.3); MONO # 0.7 10*3/uL (0.1-1.0); MONO % 5.1 % (3.0-9.0); NEUT # 10.6 10*3/uL (2.3-7.9); NEUT % 80.4 % (47.0-73.0); PLATELET COUNT AUTOMATED 344 10*3/uL (130-400); RED BLOOD COUNT 4.94 10*6/uL (4.50-5.90); WHITE BLOOD COUNT 13.2 10*3/uL (4.8-10.8)
[2024-03-04 13:40] LABS: ACT PARTIAL THROMBO TIME 26.9 SECONDS (20.0-32.1)
[2024-03-04 14:00] LABS: ALKALINE PHOSPHATASE 96 U/L (46-116); BUN 11 mg/dl (9-23); CHLORIDE 105 mmol/L (98-107); LIPASE 31 U/L (12-53); POTASSIUM 4.1 mmol/L (3.4-5.1); SGPT/ALT 24 U/L (5-49); TOTAL PROTEIN 6.8 gm/dL (6.0-8.0)
[2024-03-04 14:01] LABS: ETHYL ALCOHOL < 3.0 mg/dl (<3)
[2024-03-04 14:39] LABS: CPK 123 U/L (34-171)
[2024-03-04 14:42] LABS: BILIRUBIN Negative (Negative); BLOOD Negative (Negative); CLARITY Clear (Clear); COLOR Yellow (Yellow); GLUCOSE Negative (Negative); KETONE Negative (Negative); LEUKO ESTERASE Negative (Negative); NITRITE Negative (Negative); PH 6.5 (4.5-8.0); SPECIFIC GRAVITY 1.015 (1.001-1.030)
[2024-03-04 14:49] LABS: URINE AMPHETAMINES Negative (1000ng/ml); URINE BARBITURATES Negative (200ng/ml); URINE BENZODIAZEPINES Negative (200ng/ml); URINE CANNABINOIDS (THC) Negative (50ng/ml); URINE COCAINE Negative (300ng/ml); URINE METHADONE Negative (300ng/ml); URINE OPIATES Negative (300ng/ml); URINE PHENCYCLIDINE Negative (25ng/ml)
[2024-03-04 14:55] LABS: BACTERIA 1+
== END 2024-03-05 02:00 ==
LOC: ED 12:46
PROVIDERS: Internal Medicine
DX: F43.21 Adjustment disorder with depressed mood (principal); F31.9 Bipolar disorder, unspecified; R42 Dizziness and giddiness; F17.200 Nicotine dependence, unspecified, uncomplicated; Z79.899 Other long term (current) drug therapy; Z79.2 Long term (current) use of antibiotics; Z90.89 Acquired absence of other organs

== ENCOUNTER 2024-03-20 12:13 | Emergency (ER) | payer OTHER ==
[~2024-03-20] VITALS: Ht 175.2 cm; Wt 77.1 kg
[2024-03-20 12:56] LABS: BASO % 0.4 % (0.0-1.0); EOS # 0.1 10*3/uL (0.0-0.4); EOS % 0.8 % (1.0-4.0); HEMATOCRIT 46.1 % (42.0-52.0); LYMPH # 1.3 10*3/uL (1.3-4.4); LYMPH % 16.5 % (27.0-41.0); MEAN CELL VOLUME 95.6 fl (80.0-94.0); MEAN CORPUSCULAR HGB 31.7 pg (27.0-31.0); MEAN CORPUSCULAR HGB CONC 33.2 g/dl (33.0-37.0); MEAN PLATELET VOLUME 8.9 fl (9.6-12.3); MONO # 0.4 10*3/uL (0.1-1.0); NEUT # 6.1 10*3/uL (2.3-7.9); NEUT % 76.9 % (47.0-73.0); PLATELET COUNT AUTOMATED 276 10*3/uL (130-400); RED BLOOD COUNT 4.82 10*6/uL (4.50-5.90); RED CELL DISTRI WIDTH 12.8 % (0-14.5)
[2024-03-20] MEDS ORDERED: Lidocaine Hydrochloride 15 ML UDC PO ONE (13:00)
[2024-03-20] MEDS ORDERED: MG-AL HYDROXIDE/SIMETICONE 30 ML UDC PO ONE (13:00)
[2024-03-20 13:07] LABS: ACT PARTIAL THROMBO TIME 24.7 SECONDS (20.0-32.1)
[2024-03-20 13:07] LABS: BILIRUBIN Negative (Negative); BLOOD 3+ (Negative); CLARITY Clear (Clear); COLOR Yellow (Yellow); GLUCOSE Negative (Negative); KETONE Negative (Negative); LEUKO ESTERASE Negative (Negative); NITRITE Negative (Negative); PH 6.5 (4.5-8.0); UROBILINOGEN 0.2 E.U./dl (0.0-1.0)
[2024-03-20 13:14] LABS: URINE AMPHETAMINES Negative (1000ng/ml); URINE BARBITURATES Negative (200ng/ml); URINE BENZODIAZEPINES Negative (200ng/ml); URINE CANNABINOIDS (THC) Negative (50ng/ml); URINE COCAINE Negative (300ng/ml); URINE METHADONE Negative (300ng/ml); URINE OPIATES Negative (300ng/ml); URINE PHENCYCLIDINE Negative (25ng/ml)
[2024-03-20 13:18] LABS: ALKALINE PHOSPHATASE 83 U/L (46-116); BUN 13 mg/dl (9-23); CHLORIDE 108 mmol/L (98-107); LIPASE 28 U/L (12-53); SGPT/ALT 22 U/L (5-49); TOTAL PROTEIN 7.2 gm/dL (6.0-8.0)
[2024-03-20 13:20] LABS: BACTERIA 1+; MUCOUS 1+; RBC TNTC rbc/hpf (0-2)
== END 2024-03-21 04:21 ==
LOC: ED 12:13
PROVIDERS: Emergency Medicine
DX: R45.851 Suicidal ideations (principal); Z57.5 Occupational exposure to toxic agents in other industries; F41.9 Anxiety disorder, unspecified; F31.9 Bipolar disorder, unspecified; K21.9 Gastro-esophageal reflux disease without esophagitis; I10 Essential (primary) hypertension; E78.5 Hyperlipidemia, unspecified; R07.89 Other chest pain; R10.9 Unspecified abdominal pain; F17.200 Nicotine dependence, unspecified, uncomplicated; Z90.89 Acquired absence of other organs

== ENCOUNTER → 2025-04-27 | Outpatient (CLI) | payer OTHER ==
[2025-04-27 08:02] LABS: BASO # 0.0 10*3/uL (0.0-0.1); BASO % 0.3 % (0.0-1.0); EOS # 0.2 10*3/uL (0.0-0.4); EOS % 2.8 % (1.0-4.0); MEAN CELL VOLUME 100.0 fl (80.0-94.0); MEAN CORPUSCULAR HGB 32.3 pg (27.0-31.0); MEAN PLATELET VOLUME 9.7 fl (9.6-12.3); MONO # 0.5 10*3/uL (0.1-1.0); MONO % 7.0 % (3.0-9.0); NEUT # 4.8 10*3/uL (2.3-7.9); NEUT % 68.2 % (47.0-73.0); NUCLEATED RED BLOOD CELL 0.0 % (0.0-0.0); NUCLEATED RED BLOOD CELL 0.0 10*3/uL (0.0-0.0); PLATELET COUNT AUTOMATED 215 10*3/uL (130-400); RED CELL DISTRI WIDTH 12.7 % (0-14.5)
[2025-04-27 08:43] LABS: BUN 20 mg/dl (9-23); LDL CHOLESTEROL 78 mg/dL (9-159); SGPT/ALT 16 U/L (5-49)
== END ==
LOC: LAB 07:29
PROVIDERS: ATTEND Nurse Practitioner Family
DX: F41.1 Generalized anxiety disorder (principal); Z51.81 Encounter for therapeutic drug level monitoring